=== PATIENT | male | born 1960 | race Caucasian/White ===

== ENCOUNTER 2016-11-01 20:41 | Inpatient (IN) | payer MEDICARE ==
[~2016-11-01] VITALS: Ht 177.8 cm; Wt 166.5 kg
[2016-11-01] MEDS ORDERED: ASPIRIN 81 MG CHEW TAB ONE (21:14)
[2016-11-01] MEDS ORDERED: SALINE FLUSH 10 ML FLUSH PRN (22:10)
[2016-11-01] MEDS ORDERED: DILAUDID 1 MG/ML AMP IV PRN (22:10)
[2016-11-01] MEDS ORDERED: ACETAMINOPHEN 325 MG TAB PO PRN (22:10)
[2016-11-01] MEDS ORDERED: PROMETHAZINE 25 MG/ML VIAL IV PRN (22:10)
[2016-11-01] MEDS ORDERED: ALPRAZOLAM 0.25 MG TAB PO PRN (22:10)
[2016-11-01] MEDS ORDERED: LACTULOSE SOLN 20GM/30ML UDC PO PRN (22:10)
[2016-11-01] MEDS ORDERED: ALU/MAG/SIM 30 ML UDC PO PRN (22:10)
[2016-11-01] MEDS ORDERED: NITROGLYCERIN SL 0.4 MG TAB SL PRN (22:15)
[2016-11-01] MEDS ORDERED: SODIUM CHLORIDE 0.9% 100 ML IV ONE (22:25)
[2016-11-01] MEDS ORDERED: CEFTRIAXONE 1 GM VIAL ONE (22:25)
[2016-11-01] MEDS ORDERED: AZITHROMYCIN 500 MG VIAL IV ONE (22:25)
[2016-11-01] MEDS ORDERED: SODIUM CHLORIDE 0.9% 250 ML IV ONE (22:25)
[2016-11-02] VITALS (7 sets, daily range): BP systolic 129–164; RESP 16–20; TEMP 97.8–98.2; BMI 52.7
[2016-11-02] MEDS: ONDANSETRON 4 MG VIAL IV PUSH PRN ×2 (00:36→09:08)
[2016-11-02] MEDS: SODIUM CHLORIDE 0.9% 1,000 ML IV SCH ×2 (00:37→21:37)
[2016-11-02] MEDS: SODIUM CHLORIDE 0.9% FLUSH BAG 500 ML IV SCH (01:02)
[2016-11-02] MEDS ORDERED: KCL CR 20 MEQ TAB PO ONE (07:35)
[2016-11-02] MEDS: SALINE FLUSH 10 ML FLUSH SCH ×2 (07:43→20:00)
[2016-11-02] MEDS: ENOXAPARIN 30 MG/0.3 ML SYR SUBQ SCH (08:35)
[2016-11-02] MEDS: CEFTRIAXONE 2 GM in SODIUM CHLORIDE 0.9% 50 ML IV SCH (08:35)
[2016-11-02] MEDS: LEVOTHYROXINE 0.125 MG TAB PO SCH (08:36)
[2016-11-02] MEDS: ASPIRIN 81 MG CHEW TAB PO SCH (08:38)
[2016-11-02] MEDS: NADOLOL 20 MG TAB PO SCH (08:38)
[2016-11-02] MEDS: AZITHROMYCIN 250 MG TAB PO SCH (08:38)
[2016-11-02] MEDS: KCL CR 10 MEQ TAB PO SCH (08:38)
[2016-11-02] MEDS: DICYCLOMINE 20 MG TAB PO PRN (11:00)
[2016-11-02] MEDS ORDERED: MISSING DOSE XX ONE (11:05)
[2016-11-02] MEDS ORDERED: KCL CR 10 MEQ CAP PO ONE (12:45)
[2016-11-02] MEDS: PANTOPRAZOLE 40 MG TAB PO SCH (14:07)
[2016-11-02] MEDS: CETIRIZINE 10 MG TAB PO SCH (14:08)
[2016-11-02] MEDS: SIMETHICONE 80 MG CHEW TAB PO PRN (14:12)
[2016-11-02] MEDS: CYCLOBENZAPRINE 10 MG TAB PO SCH (21:37)
[2016-11-02] MEDS: ZOLPIDEM 5 MG TAB PO PRN (22:52)
[2016-11-03 00:10] VITALS: BP_SYST 132; RESP 18; TEMP 98.3
[2016-11-03 04:00] VITALS: BP_SYST 137; RESP 18; TEMP 97.7
[2016-11-03] MEDS: SODIUM CHLORIDE 0.9% FLUSH BAG 500 ML IV SCH ×2 (06:00→19:37)
[2016-11-03] MEDS: LEVOTHYROXINE 0.125 MG TAB PO SCH (06:39)
[2016-11-03 07:34] VITALS: BP_SYST 120; RESP 18; TEMP 98.2
[2016-11-03] MEDS ORDERED: LEXISCAN 0.4 MG/5 ML SYRINGE IV ONE (07:56)
[2016-11-03] MEDS ORDERED: KCL CR 10 MEQ CAP PO ONE (08:40)
[2016-11-03] MEDS: KCL CR 10 MEQ TAB PO SCH (08:44)
[2016-11-03] MEDS: CETIRIZINE 10 MG TAB PO SCH (09:40)
[2016-11-03] MEDS: PANTOPRAZOLE 40 MG TAB PO SCH (09:40)
[2016-11-03] MEDS: ASPIRIN 81 MG CHEW TAB PO SCH (09:41)
[2016-11-03] MEDS: SALINE FLUSH 10 ML FLUSH SCH ×2 (09:41→20:25)
[2016-11-03] MEDS: CEFTRIAXONE 2 GM in SODIUM CHLORIDE 0.9% 50 ML IV SCH (09:41)
[2016-11-03] MEDS: AZITHROMYCIN 250 MG TAB PO SCH (09:41)
[2016-11-03] MEDS: ENOXAPARIN 30 MG/0.3 ML SYR SUBQ SCH (09:42)
[2016-11-03] MEDS: SIMETHICONE 80 MG CHEW TAB PO PRN ×2 (09:49→18:13)
[2016-11-03] MEDS: NADOLOL 20 MG TAB PO SCH (11:10)
[2016-11-03 12:14] VITALS: BP_SYST 126; RESP 18; TEMP 98.3
[2016-11-03] MEDS ORDERED: Carvedilol 6.25 MG TAB PO ONE (14:10)
[2016-11-03] MEDS: ISOSORBIDE MONO 30 MG TAB PO SCH (14:57)
[2016-11-03] MEDS ORDERED: MISSING DOSE XX ONE (15:15)
[2016-11-03 15:21] VITALS: BP_SYST 131; RESP 18; TEMP 98.3
[2016-11-03] MEDS: DICYCLOMINE 20 MG TAB PO PRN (18:13)
[2016-11-03 20:10] VITALS: BP_SYST 121; RESP 18; TEMP 97.3
[2016-11-03] MEDS: CYCLOBENZAPRINE 10 MG TAB PO SCH (20:25)
[2016-11-03] MEDS: Carvedilol 6.25 MG TAB PO SCH (20:25)
[2016-11-04 00:47] VITALS: BP_SYST 124; RESP 18; TEMP 97.5
[2016-11-04] MEDS: ZOLPIDEM 5 MG TAB PO PRN (01:00)
[2016-11-04] MEDS: SODIUM CHLORIDE 0.9% 1,000 ML IV SCH (01:01)
[2016-11-04 03:00] VITALS: BP_SYST 118; RESP 18
[2016-11-04] MEDS: PANTOPRAZOLE 40 MG TAB PO SCH (06:27)
[2016-11-04] MEDS: LEVOTHYROXINE 0.125 MG TAB PO SCH (06:27)
[2016-11-04 07:14] VITALS: BP_SYST 111; RESP 16; TEMP 98.4
[2016-11-04] MEDS: AZITHROMYCIN 250 MG TAB PO SCH (08:50)
[2016-11-04] MEDS: ASPIRIN 81 MG CHEW TAB PO SCH (08:51)
[2016-11-04] MEDS: CETIRIZINE 10 MG TAB PO SCH (08:51)
[2016-11-04] MEDS: KCL CR 10 MEQ TAB PO SCH (08:51)
[2016-11-04] MEDS: ISOSORBIDE MONO 30 MG TAB PO SCH (08:51)
[2016-11-04] MEDS: Carvedilol 6.25 MG TAB PO SCH (08:51)
[2016-11-04] MEDS: SALINE FLUSH 10 ML FLUSH SCH (08:52)
[2016-11-04] MEDS: ENOXAPARIN 30 MG/0.3 ML SYR SUBQ SCH (08:52)
[2016-11-04] MEDS: CEFTRIAXONE 2 GM in SODIUM CHLORIDE 0.9% 50 ML IV SCH (08:52)
[2016-11-04] MEDS: ONDANSETRON 4 MG VIAL IV PUSH PRN (09:01)
[2016-11-04] MEDS ORDERED: MISSING DOSE XX ONE (09:30)
[2016-11-04] MEDS: SIMETHICONE 80 MG CHEW TAB PO PRN (10:30)
[2016-11-04 11:08] VITALS: BP_SYST 108; BP_SYST 99; RESP 18; TEMP 97.1
[2016-11-04 12:14] VITALS: BP_SYST 108; RESP 18; TEMP 97.1
[2016-11-04 14:39] VITALS: Ht 177.8 cm; Wt 166.5 kg
== END 2016-11-04 12:56 | disposition home or self-care (01) | DRG 194 ==
LOC: ENRESERVTM → ENRESERVDT → ER 20:41 → EMR 22:10 → PCU2 11-02 00:15 → ENPENDDIS 11-02 08:52 → OBSVTOIN 11-02 08:52
PROVIDERS: ADMIT Internal Medicine Nephrology; ATTEND Internal Medicine Nephrology
DX: J18.9 Pneumonia, unspecified organism (principal); Z68.43 Body mass index [BMI] 50.0-59.9, adult; I11.9 Hypertensive heart disease without heart failure; E66.01 Morbid (severe) obesity due to excess calories; Z71.3 Dietary counseling and surveillance; R07.89 Other chest pain; K58.9 Irritable bowel syndrome, unspecified; G89.4 Chronic pain syndrome; N40.0 Benign prostatic hyperplasia without lower urinary tract symptoms; E03.9 Hypothyroidism, unspecified
CPT/HCPCS: 36415; 71010; 78452; 80048; 80053; 80061; 82550; 82553; 83735; 83880; 84439; 84443; 84484; 85025; 85379; 85610; 85730; 87493; 93005; 93017; 94799; 96365; 96375